=== PATIENT | male | born 1955 | race African-American/Black ===

== ENCOUNTER 2018-08-13 14:57 | Inpatient (IN) | payer MEDICAID ==
[~2018-08-13] VITALS: Ht 175.3 cm; Wt 86.6 kg
[2018-08-13] MEDS ORDERED: ZOLPIDEM TARTRATE 10 MG TABLET PO PRN (18:45)
[2018-08-13 19:29] VITALS: BP 112/71
[2018-08-13] MEDS ORDERED: IBUPROFEN 400 MG TABLET PO PRN (19:45)
[2018-08-13] MEDS ORDERED: DOCUSATE SODIUM 100 MG CAPSULE PO PRN (19:45)
[2018-08-13] MEDS ORDERED: CloNIDine HCL 0.1 MG TABLET PO PRN (19:45)
[2018-08-13] MEDS ORDERED: PETROLATUM,WHITE 71 GM JELLY TP PRN (19:45)
[2018-08-13] MEDS ORDERED: ALBUTEROL SULFATE HFA 90 MCG/PUFF 8 GM INHALER IH PRN (19:45)
[2018-08-13] MEDS ORDERED: MAGNESIUM HYDROXIDE SUSPENSION 30 ML UDCUP PO PRN (19:45)
[2018-08-13] MEDS ORDERED: ACETAMINOPHEN 325 MG TABLET PO PRN (19:45)
[2018-08-13] MEDS ORDERED: ONDANSETRON HCL 4 MG TABLET PO PRN (19:45)
[2018-08-13] MEDS ORDERED: GuaiFENesin/D-METHORPHAN [SUGAR-FREE] 200-20MG/10 ML SYRUP UDCUP PO PRN (19:45)
[2018-08-13] MEDS ORDERED: LOPERAMIDE HCL 2 MG CAPSULE PO PRN (19:45)
[2018-08-13] MEDS ORDERED: NICOTINE 14 MG/24 HOUR PATCH TD PRN (19:45)
[2018-08-13] MEDS ORDERED: PNEUMOCOCCAL VACCINE POLYVALENT 0.5 ML VIAL [PPSV23] IM ONE (20:15)
[2018-08-13] MEDS: LORazepam 2 MG TABLET PO PRN (20:28)
[2018-08-14 05:14] VITALS: BP 116/68
[2018-08-14 08:10] LABS: EOSINOPHILS % (AUTO) 2.3 % (1.0-6.0); HEMATOCRIT 40.8 % (41-53); HEMOGLOBIN 13.9 g/dL (13.5-17.5); LYMPHOCYTES # (AUTO) 1.4 K/uL (1.0-4.8); LYMPHOCYTES % (AUTO) 25.4 % (22.0-44.0); MEAN CORPUSCULAR HEMOGLOBIN 31.5 pg (26.0-34.0); MEAN CORPUSCULAR HGB CONC 34.1 G/dL (31.0-37.0); MEAN CORPUSCULAR VOLUME 92 fL (80-100); MONOCYTES # (AUTO) 0.5 K/uL (0.1-1.0); MONOCYTES % (AUTO) 9.2 % (2.0-9.0); NEUTROPHILS # (AUTO) 3.5 K/uL (1.8-7.7); NEUTROPHILS % (AUTO) 62.1 % (40.0-70.0); PLATELET COUNT (AUTO) 225 K/uL (150-450); RED BLOOD CELL COUNT(AUTO) 4.42 MIL/uL (4.50-5.90); RED CELL DISTRIBUTION WIDTH 14.2 % (11.5-14.5)
[2018-08-14 08:36] VITALS: BP 118/68
[2018-08-14 08:56] LABS: ALANINE AMINOTRANSFERASE 18 U/L (12-78); ALBUMIN 3.2 g/dL (3.4-5.0); ALKALINE PHOSPHATASE 102 U/L (46-116); ANION GAP 5 mmol/L (8-16); ASPARTATE AMINOTRANSFERASE 14 U/L (15-37); BILIRUBIN,TOTAL 0.7 mg/dL (0.1-1.0); CARBON DIOXIDE 28 mmol/L (22-29); CHLORIDE 101 mmol/L (98-107); CHOL/HDL RATIO 5.9 (4.2-7.3); CHOLESTEROL 178 mg/dL (131-200); GLOMERULAR FILTR. RATE CALC > 60 mL/min (>60); GLUCOSE,RANDOM 86 mg/dL (70-110); HDL CHOLESTEROL 30 mg/dL (40-60); LDL CHOL (CALC.) 125 mg/dL (0-130); POTASSIUM 4.3 mmol/L (3.5-5.1); SODIUM SERUM 134 mmol/L (136-145); THYROID STIMULATING HORMONE 0.89 uIU/mL (0.36-3.74); TOTAL PROTEIN, SERUM 7.3 g/dL (6.4-8.2); TRIGLYCERIDES 115 mg/dL (15-150); UREA NITROGEN, BLOOD 15 mg/dL (7-18)
[2018-08-14] MEDS: QUEtiapine FUMARATE 100 MG TABLET PO SCH (12:41)
[2018-08-14] MEDS: FLUoxetine HCL 20 MG CAPSULE PO SCH (12:41)
[2018-08-14 18:17] VITALS: BP 109/77
[2018-08-14] MEDS: QUEtiapine FUMARATE 200 MG TABLET PO SCH (21:43)
[2018-08-15 06:35] VITALS: BP 114/71
[2018-08-15] MEDS: FLUoxetine HCL 20 MG CAPSULE PO SCH (08:35)
[2018-08-15] MEDS: QUEtiapine FUMARATE 100 MG TABLET PO SCH (08:35)
[2018-08-15 08:55] VITALS: BP 121/69
[2018-08-15 16:00] VITALS: BP 104/74
[2018-08-15] MEDS: LORazepam 2 MG TABLET PO PRN (16:17)
[2018-08-15] MEDS: HALOPERIDOL 5 MG TABLET PO PRN (16:17)
[2018-08-15] MEDS: QUEtiapine FUMARATE 200 MG TABLET PO SCH (20:41)
[2018-08-16 06:04] VITALS: BP 110/70
[2018-08-16 09:08] LABS: ANION GAP 8 mmol/L (8-16); CALCIUM, TOTAL 9.3 mg/dL (8.8-10.5); CARBON DIOXIDE 30 mmol/L (22-29); CHLORIDE 100 mmol/L (98-107); CREATININE 1.07 mg/dL (0.60-1.30); GLOMERULAR FILTR. RATE CALC > 60 mL/min (>60); GLUCOSE,RANDOM 89 mg/dL (70-110); POTASSIUM 4.4 mmol/L (3.5-5.1); SODIUM SERUM 138 mmol/L (136-145); UREA NITROGEN, BLOOD 16 mg/dL (7-18)
[2018-08-16] MEDS: FLUoxetine HCL 20 MG CAPSULE PO SCH (09:24)
[2018-08-16] MEDS: QUEtiapine FUMARATE 100 MG TABLET PO SCH (09:24)
[2018-08-16 09:46] VITALS: BP 101/61
[2018-08-16 16:00] VITALS: BP 135/73
[2018-08-16] MEDS: LORazepam 2 MG TABLET PO PRN (16:42)
[2018-08-16] MEDS: QUEtiapine FUMARATE 200 MG TABLET PO SCH (21:03)
[2018-08-17 06:11] VITALS: BP 122/79
[2018-08-17] MEDS: FLUoxetine HCL 20 MG CAPSULE PO SCH (09:23)
[2018-08-17] MEDS: QUEtiapine FUMARATE 100 MG TABLET PO SCH (09:23)
[2018-08-17] MEDS: MAG HYDROX/AL HYDROX/SIMETH ES 30 ML SUSPENSION UDCUP PO PRN (14:35)
[2018-08-17] MEDS: LORazepam 2 MG TABLET PO PRN (14:35)
[2018-08-17] MEDS: HALOPERIDOL 5 MG TABLET PO PRN (14:35)
[2018-08-17 16:33] VITALS: BP 110/76
[2018-08-17] MEDS: QUEtiapine FUMARATE 200 MG TABLET PO SCH (21:15)
[2018-08-18 07:07] VITALS: BP 117/79
[2018-08-18 08:45] VITALS: BP 102/78
[2018-08-18] MEDS: FLUoxetine HCL 20 MG CAPSULE PO SCH (09:23)
[2018-08-18] MEDS: QUEtiapine FUMARATE 100 MG TABLET PO SCH (09:23)
[2018-08-18] MEDS: LORazepam 2 MG TABLET PO PRN (14:42)
[2018-08-18 16:11] VITALS: BP 108/74
[2018-08-18] MEDS: QUEtiapine FUMARATE 200 MG TABLET PO SCH (21:02)
[2018-08-19 06:15] VITALS: BP 114/79
[2018-08-19 08:18] VITALS: BP 101/66
[2018-08-19] MEDS: FLUoxetine HCL 20 MG CAPSULE PO SCH (09:01)
[2018-08-19] MEDS: QUEtiapine FUMARATE 100 MG TABLET PO SCH (09:01)
[2018-08-19] MEDS: LORazepam 2 MG TABLET PO PRN ×2 (12:44→18:15)
[2018-08-19 16:21] VITALS: BP 108/77
[2018-08-19] MEDS: QUEtiapine FUMARATE 200 MG TABLET PO SCH (20:39)
[2018-08-20 05:50] VITALS: BP 128/74
[2018-08-20 08:15] VITALS: BP 103/60
[2018-08-20] MEDS: QUEtiapine FUMARATE 100 MG TABLET PO SCH (08:52)
[2018-08-20] MEDS: FLUoxetine HCL 20 MG CAPSULE PO SCH (08:52)
[2018-08-20] MEDS: LORazepam 2 MG TABLET PO PRN ×2 (14:03→21:04)
[2018-08-20 16:13] VITALS: BP 111/60
[2018-08-20] MEDS: MAG HYDROX/AL HYDROX/SIMETH ES 30 ML SUSPENSION UDCUP PO PRN (19:43)
[2018-08-20] MEDS: QUEtiapine FUMARATE 200 MG TABLET PO SCH (21:04)
[2018-08-21 06:27] VITALS: BP 116/74
[2018-08-21] MEDS: QUEtiapine FUMARATE 100 MG TABLET PO SCH (09:01)
[2018-08-21] MEDS: FLUoxetine HCL 20 MG CAPSULE PO SCH (09:01)
[2018-08-21 09:13] VITALS: BP 106/68
[2018-08-21] MEDS: LORazepam 2 MG TABLET PO PRN (12:45)
[2018-08-21] MEDS ORDERED: QUET100T PO (13:55)
[2018-08-21] MEDS ORDERED: QUET200T PO (13:56)
[2018-08-21] MEDS ORDERED: FLUO-191 PO (13:56)
[2018-08-21 15:33] VITALS: BP 106/64
== END 2018-08-21 16:12 | disposition home or self-care (01) | DRG 750 ==
LOC: B3A 18:52
PROVIDERS: ADMIT Psychiatry & Neurology Psychiatry; ATTEND Psychiatry & Neurology Psychiatry
DX: F25.0 Schizoaffective disorder, bipolar type (principal); R45.851 Suicidal ideations; E87.1 Hypo-osmolality and hyponatremia; R45.87 Impulsiveness; I10 Essential (primary) hypertension; F41.9 Anxiety disorder, unspecified; F10.10 Alcohol abuse, uncomplicated; K59.00 Constipation, unspecified; Z59.0 Homelessness
CPT/HCPCS: 83036; 84443